=== PATIENT | male | born 1940 | race Caucasian/White ===

== ENCOUNTER 2018-11-15 14:06 | Emergency (ER) | payer MEDICARE ==
[~2018-11-15] VITALS: Ht 172.7 cm; Wt 108.9 kg
--- OUTSIDE RECORDS SUMMARY | ~2018-11-15 | XMS | Clinical Summary ---
Demographics + + + | Address | [address] [place] [address] St | | | [place] [address] | + + + | Home Phone | | + + + | Preferred Language | Unknown | + + + | Marital Status | | + + + | Shinto Affiliation | Unknown | + + + | Race | Unknown | + + + | Ethnic Group | Unknown | + + + Author + + + | Author | [facility] | | | and [place] | + + + | Organization | [facility] | | | and [place] | + + + | Address | Unknown | + + + | Phone | Unavailable | + + + Support + + +---------+ + | Name | Relationship | Address | Phone | + + +---------+ + | Yahir Jesus | ECON | Unknown | | + + +---------+ + Care Team Providers + +------+ + | Care Processing Supervisor Name | Role | Phone | + +------+ + | Rivas Sales MD | PCP | | + +------+ + Allergies No Known Allergies Medications + + + +---------+------+------+-------+ | Medication | Sig | Dispensed | Refills | Star | End | Statu | | | | | | t | Date | s | | | | | | Date | | | + + + +---------+------+------+-------+ | SEREVENT DISKUS 50 | Inhale one puff | | 0 | 05/0 | | Activ | | MCG/DOSE diskus | twice daily | | | 4/20 | | e | | inhaler | | | | 17 | | | + + + +---------+------+------+-------+ | fluticasone | instill 2 sprays | | 0 | 06/0 | | Activ | | (FLONASE) 50 | into each nostril | | | 1/20 | | e | | mcg/nasal spray | once daily | | | 17 | | | + + + +---------+------+------+-------+ | omeprazole | take 1 capsule by | | 0 | 06/0 | | Activ | | (PRILOSEC) 40 MG | mouth 3O MINUTES | | | 1/20 | | e | | capsule | BEFORE BREAKFAST | | | 17 | | | | | DAILY | | | | | | + + + +---------+------+------+-------+ Active Problems Not on file Immunizations + + + + | Name | Dates Previously Given | Next Due | + + + + | INFLUENZA 64 Y OR >, | 02/25/2016 | | | TRIVALENT HIGH-DOSE | | | + + + + | PNEUMOCOCCAL | 02/25/2016 | | | CONJUGATE 13-VALENT | | | | (PCV13) | | | + + + + Family History + + +------+ + | Medical History | Relation | Name | Comments | + + +------+ + | Diabetes | Father | | | + + +------+ + | Heart failure | Father | | | + + +------+ + + +------+ + + | Relation | Name | Status | Comments | + +------+ + + | Father | | | | + +------+ + + | Mother | | | | + +------+ + + Social History + + + +--------+ + | Tobacco Use | Types | Packs/Day | Years | Date | | | | | Used | | + + + +--------+ + | Former Smoker | Cigarettes | | | 05/19/1955 - | | | | | | 02/17/1975 | + + + +--------+ + + +---+---+---+ | Smokeless Tobacco: | | | | | Never Used | | | | + +---+---+---+ + + | Tobacco Cessation: Counseling Given: No | + + + + +---------+ + | Alcohol Use | Drinks/We | oz/Week | Comments | | | ek | | | + + +---------+ + | Yes | 0 | 0.0 | | | | Standard | | | | | drinks or | | | | | | | | | | equivalen | | | | | t | | | + + +---------+ + + + + | Sex Assigned at | Date Recorded | | | | + + + | Not on file | | + + + + + + + | Job Start Date | Occupation | Industry | + + + + | Not on file | Not on file | Not on file | + + + + + + + + | Travel History | Travel Start | Travel End | + + + + + + | No recent travel history available. | + + Last Filed Vital Signs + + + + | Vital Sign | Reading | Time Taken | + + + + | Blood Pressure | 120/84 | 07/18/20161452 PDT | + + + + | Pulse | 60 | 07/18/20161452 PDT | + + + + | Temperature | 36.9 C (98.4 F) | 07/18/20161452 PDT | + + + + | Respiratory Rate | - | - | + + + + | Oxygen Saturation | 94% | 07/18/20161452 PDT | + + + + | Inhaled Oxygen | - | - | | Concentration | | | + + + + | Weight | 111.6 kg (246 lb) | 07/18/20161452 PDT | + + + + | Height | 167.6 cm (5' 6") | 07/18/20161452 PDT | + + + + | Body Mass Index | 39.71 | 07/18/2016 1453 PDT | + + + + Plan of Treatment + + + + + | Health Maintenance | Due Date | Last Done | Comments | + + + + + | Vaccine: | | | | | Dtap/Tdap/Td (1 - | 9 | | | | Tdap) | | | | + + + + + | Vaccine: Zoster (1 | | | | | of 2) | 0 | | | + + + + + | Vaccine: | | 02/25/2016 | | | Pneumococcal 65+ | 8 | | | | Low/Medium Risk (2 | | | | | of 2 - PPSV23) | | | | + + + + + | Vaccine: Influenza | | 02/25/2016 | | | (#1) | 9 | | | + + + + + Results Not on filefrom Last 3 Months Insurance + +--------+ +--------+ +---------+--------+ | Payer | Benefi | Subscriber | Effect | Phone | Address | Type | | | t Plan | ID | indra | | | | | | / | | Dates | | | | | | Group | | | | | | + +--------+ +--------+ +---------+--------+ | MEDICARE | MEDICA | [id number] | 04/11/19 | [phone] | | Medica | | | RE | | 05-Pre | 5 | | re | | | PART A | | sent | | | | | | AND B | | | | | | + +--------+ +--------+ +---------+--------+ | AARP | AARP | [id number] | 02/10/19 | [phone] | | Indemn | | | MDCR | | 17-Pre | 0 | | ity | | | SUPPL | | sent | | | | + +--------+ +--------+ +---------+--------+ + +--------+ +--------+ + + | Guarantor Name | Accoun | Relation to | Date | Phone | Billing Address | | | t Type | Patient | of | | | | | | | | | | + +--------+ +--------+ + + | Nolberto Jesus | Person | Self [birth year] | | | al/Jitendra | | 1941 | [phone] | [place] [address] | | | [place]vin | | | 8 (Home) | | + +--------+ +--------+ + + Advance Directives Patient has advance care planning documents on file. For more information, please [facility] [place] [address]
--- OUTSIDE RECORDS SUMMARY | ~2018-11-15 | XMS | Clinical Summary ---
Demographics + + + | Address | [address] [place] [address] St | | | [place] [address] | + + + | Home Phone | | + + + | Preferred Language | Unknown | + + + | Marital Status | | + + + | Worship Affiliation | Unknown | + + + | Race | Unknown | + + + | Ethnic Group | Unknown | + + + Author + + + | Author | [facility] | | | and [place] | + + + | Organization | [facility] | | | and [place] | [...] Team Providers + +------+ + | Care Senior [employer]p Software Developer Name | Role | Phone | + [...] +--------+ +---------+--------+ | MEDICARE | MEDICA | [id number] | 04/11/19 | [phone] | | Medica | | | RE | | 05-Pre | 5 | | re | | | PART A | | sent | | | | | | AND B | | | | | | + +--------+ +--------+ +---------+--------+ | AARP | AARP | [id number] | 02/10/19 | [phone] | | Indemn [...] | | al/Jitendra | | 1941 | [phone] | [place] [address] | | | [place]vin | | | 8 (Home) | | + +--------+ +--------+ + + Advance Directives Patient has advance care planning documents on file. For more information, please [facility] [place] [address]
--- NOTE | 2018-11-16 16:46 | EKG ---
[facility] [address] [facility] [place] [address] Signed Sinus bradycardia with fusion complexes Left axis deviation Nonspecific T wave abnormality Abnormal ECG No previous ECGs available Confirmed by JOSEE MACIEL DO ([id number]) on 11/16/2018 4:46:42 PM Electronically Signed By: JOSEE MACIEL DO 11/16/18 1646 PATIENT NAME: SINA BARNHART [place] Electrocardiogram DATE OF : 38 PHYSICIAN: JOSEE MACIEL DO REPORT #: [id number] REPORT IS CONFIDENTIAL AND NOT TO BE RELEASED WITHOUT AUTHORIZATION
== END 2018-11-15 17:54 | disposition short-term general hospital (02) ==
LOC: ED 14:06
DX: R00.1 Bradycardia, unspecified (principal); R07.9 Chest pain, unspecified
CPT/HCPCS: 71045; 80053; 83735; 84484; 85025; 93005; 93010; 96374; 99285-25

== ENCOUNTER 2023-06-30 07:47 | Day surgery (SDC) | payer MEDICARE ==
[2023-06-24 10:24] VITALS: BP 144/79
[2023-06-30] VITALS (9 sets, daily range): BP systolic 141–191; BP diastolic 69–85
[~2023-06-30] VITALS: Ht 172.7 cm; Wt 108.2 kg
[~2023-06-30 07:47] MED LIST: CEFAZOLIN SODIUM 2 GM/20 ML SYR IV SCH; IBLOOD GLUCOSE TEST STRIP 1 EA TEST VI PRN; LACTATED RINGER'S 1,000 ML IV SCH; LIDOCAINE HCL 1% 5 ML SDV INJ ONE; TAMSULOSIN HCL0.4 MG PO
[2023-06-30] MEDS ORDERED: diphenhydrAMINE HCL 25 MG CAP PO PRN (08:15)
[2023-06-30] MEDS ORDERED: MORPHINE SULFATE 4 MG/ML VIAL IV PRN (08:15)
[2023-06-30] MEDS ORDERED: LACTATED RINGER'S 1,000 ML IV SCH (08:15)
[2023-06-30] MEDS ORDERED: OXYCODONE/APAP 5/325 TAB PO PRN (08:15)
[2023-06-30] MEDS ORDERED: ondansetron HCL 4 MG/2 ML VIAL IV PRN ×2 (08:15→10:30)
[2023-06-30] MEDS ORDERED: ROCURONIUM BROMIDE 50 MG/5 ML SYR ONE ×2 (08:52→09:55)
[2023-06-30] MEDS ORDERED: DEXAMETHASONE SOD PHOS 4 MG/ML VIAL ONE ×2 (08:52→09:18)
[2023-06-30] MEDS ORDERED: ePHEDrine sulfate 50 MG/ML AMP ONE (09:16)
[2023-06-30] MEDS ORDERED: fentaNYL citrate 100 MCG/2 ML VIAL ONE ×2 (09:17→09:25)
[2023-06-30] MEDS ORDERED: MIDAZOLAM HCL 2 MG/2 ML VIAL ONE (09:17)
[2023-06-30] MEDS ORDERED: propofoL 200 MG/20 ML VIAL ONE (09:18)
[2023-06-30] MEDS ORDERED: BUPIVACAINE 0.75% IN DEXTROSE 2 ML AMP ONE (09:18)
[2023-06-30] MEDS ORDERED: LIDOCAINE HCL 2% 5 ML SDV ONE (09:18)
[2023-06-30] MEDS ORDERED: ondansetron HCL 4 MG/2 ML VIAL ONE (10:15)
[2023-06-30] MEDS ORDERED: SUGAMMADEX SODIUM 200 MG/2 ML ML ONE (10:17)
[2023-06-30] MEDS ORDERED: HYDROmorphone HCL 1 MG/ML SYR IV PRN (10:30)
[2023-06-30] MEDS ORDERED: fentaNYL citrate 50 MCG/ML SDV IV PRN (10:30)
[2023-06-30] MEDS ORDERED: NALOXONE HCL 0.4 MG SYR IV PRN (10:30)
[2023-06-30] MEDS ORDERED: IBLOOD GLUCOSE TEST STRIP 1 EA TEST VI PRN (10:30)
--- NOTE | 2023-06-30 11:06 | NUR ---
1100 PATIENT TO MED SURG, VIA GURNEY, PATIENT MOVED OVER TO BED BY TAMMY RN, PACU AND FAMILY. 1100 VITALS DONE. PATIENT DENIES PAIN, ENDORSES IRRITATION BY FRAUSTO CATHETER. SLOW DRIP ON CBI, URINE IS VERY PALE PINK. FAMILY IN ROOM WITH PATIENT. PATIENT IS SALINE LOCKED, ICE WATER PROVIDED.
--- NOTE | 2023-06-30 11:53 | NUR ---
SECOND SET OF VITALS COMPLETE. URINE IS SLIGHTLY PINKER, CBI IS SLOWEST DRIP POSSIBLE. PATIENT CONTINUES TO DENY PAIN.
--- NOTE | 2023-06-30 11:55 | NUR ---
06/30/23 1155 Juliane Elias 1029- PT ARRIVES TO PACU, SEMI THOMASON POSITION, REACTIVE TO STIMULUS. O2 AT 6L PER MASK, BREATHING EVEN AND NON LABORED. LR INFUSING TO RH IV. PT DENIES PAIN AND NAUSEA. CBI RUNNING TO FRAUSTO CATHETER WITH CLEAR FLUID COMING OUT, CBI BAGS MARKED TO MONITOR INFUSION, AND FRAUSTO CATHETER EMPTIED ON ARRIVAL. PT HAS VERY LIGHT TINGE OF PINK IN BAG. ABD ROUND AND FIRM, NON TENDER ON PALPATION. NO DRAINAGE COMING FROM PENIS. ALL MONITORS IN PLACE. 1039- PT AWAKE BUT DROWSY LOOKING AROUND. REORIENTED TO TIME AND PLACE AND PLAN OF CARE. CBI SLOWED, CONTINUE TO DRAIN CLEAR FLUID INTO FRAUSTO BAG. PT DENIES PAIN AND NAUSEA, REPORTS SOME URGENCY TO URINATE. EDUCATED PT ON CBI. 1045- LR COMPLETE, IV SALINE LOCKED TO RH. FRAUSTO CATHETER EMPTIED, 650 ML OUT, 750 ML OF NS INFUSED INTO BLADDER. NO SIGNS OF DISTRESS. DENIES PAIN AND NAUSEA. 1100- PT TAKEN TO MED/SURG, DROWSY BUT ANSWERING QUESTIONS APPROPRIATELY. PLAN OF CARE EXPLAINED TO PT. SALINE LOCK REMAINS IN RH. CBI INFUSING TO FRAUSTO CATHETER. PT IS ABLE TO MOVE SELF FROM GURNEY ACROSS TO BED. SMALL AMOUNT OF BLOOD NOTED IN CATHETER. FAMILY IN ROOM, REPORT AT BEDSIDE TO RETA BLANTON, CARE OF PT TURNED OVER AT THIS TIME.
--- NOTE | 2023-06-30 12:39 | NUR ---
PATIENT CHECKED INTO THE MEDICAL SURGICAL FLOOR BY HARVINDER MCDUFFIE. FULL ASSESSMENT COMPLETE AND DOCUMENTED IN THE CHART. PATIENT IS LYING IN BED WITH HOB ELEVATED. PATIENT WITH TWO FAMILY MEMBERS SITTING AT THE BEDSIDE. CARDIAC WITH NORMAL S1 AND S2 ON AUSCULTATION. PATIENT IS ALERT AND ORIENTED TIMES FOUR. LUNG SOUNDS ARE CLEAR IN ALL LUNG WYNN AND THE PATIENT IS ON ROOM AIR. BOWEL TONES ARE ACTIVE IN ALL FOUR QUADRANTS. IV SITE IN THE RIGHT HAND FLUSHED WITH 10 ML NORMAL SALINE. IV DRESSING IS CLEAN DRY AND INTACT. CATHETER INTACT. URINE WATERMELON COLORED AT THIS TIME. PATIENT WITH NO COMPLAINTS OF PAIN OR NUMBNESS AND TINGLING AT THIS TIME. SENSATION INTACT. PATIENT SCDS ARE ON AND IN PLACE. PATIENT STATED NO FURTHER NEEDS AT THIS TIME. CALL LIGHT AND PERSONAL BELONGINGS ARE WITHIN REACH.
[2023-06-30] MEDS ORDERED: LEVOFLOXACIN500 MG PO (12:51)
[2023-06-30] MEDS ORDERED: TRAMADOL HCL50 MG PO (12:52)
--- NOTE | 2023-06-30 15:39 | NUR ---
MED REC COMPLETE
--- NOTE | 2023-06-30 17:23 | NUR ---
PATIENT IS SITTING UPRIGHT IN BED AND EATING DINNER. PATIENT WITH NO COMPLAINTS OF PAIN WHEN ASKED BY RN. URINE IS WATERMELON COLORED. PATIENT WITH DAUGHTER AND AT THE BEDSIDE. PATIENT STATED NO FURTHER NEEDS AT THIS TIME. CALL LIGHT AND PERSONAL BELONGINGS ARE WITHIN REACH.
[2023-06-30] MEDS ORDERED: DOCUSATE SODIUM 100 MG CAP PO ONE (18:15)
[2023-06-30] MEDS ORDERED: CEFTRIAXONE/SODIUM CHLORIDE 1 GM/100 ML PIGGYBACK IV SCH (18:30)
[2023-07-01] MEDS ORDERED: CEFTRIAXONE/SODIUM CHLORIDE 1 GM/100 ML PIGGYBACK IV SCH (09:00)
--- NOTE | 2023-07-04 11:36 | PATH ---
[facility] [address] [place], [place] [address] Signed SPECIMEN(S): A PROSTATE CHIPS SPECIMEN SOURCE: A. PROSTATE CHIPS CLINICAL HISTORY: BPH with LUTS FINAL PATHOLOGIC DIAGNOSIS: Prostate chips: - Benign prostatic glandular tissue. - Urothelium with focal mild atypia, favor reactive. JVR:clv MICROSCOPIC EXAMINATION: Histologic sections of all submitted blocks are examined by light microscopy. These findings, together with the gross examination, support the pathologic diagnosis. Immunostains were performed with appropriate controls on block A1 and show the following: - CK5: Focal basal expression in the urothelium of concern. - CK20: Negative for full-thickness epithelial staining in area of concern. JVR:clv GROSS DESCRIPTION: The specimen, labeled and designated "Montee, " and designated on the requisition "prostate chips," is received in formalin and consists of multiple fragments of maki-pink soft rubbery tissue (1 g, 2.0 x 1.7 x 0.8 cm in aggregate). The specimen is submitted entirely in cassette A1. AC (under the direct supervision of a pathologist) The Gross Description was prepared using a voice recognition system. The report was reviewed for accuracy; however, sound-alike word errors, addition and/or deletions may occur. If there is any question about this report, please contact Client Services. ADDITIONAL NOTES: Immunohistochemical and/or in situ hybridization studies if performed in this case included appropriate positive controls that reacted as expected. This test was developed and its performance characteristics determined by [facility]. It has not been cleared or PATIENT NAME: SINA BARNHART PATHOLOGY DATE OF : 38 REPORT #: [id number] PHYSICIAN: [facility] PCP: SARAH BAKER MD REPORT IS CONFIDENTIAL AND NOT TO BE RELEASED WITHOUT AUTHORIZATION [address] [place], [place] [address] Signed approved by the U.S. Food and Drug Administration. The FDA has determined that such clearance or approval is not necessary. This test is used for clinical purposes. It should not be regarded as investigational or for research. [facility] is certified under the Clinical Laboratory Improvement Amendments of 1988 (CLIA) as qualified to perform high complexity clinical laboratory testing. PERFORMING LABORATORY: Technical component was performed by [facility], [address] [place] [address] (CLIA# [id number]). Professional interpretation was performed by [facility] - [facility], [address] [place] [id number] (CLIA#: [id number]). Diagnostician: Wilfredo Daily MD Pathologist Electronically Signed 07/04/2023 Copies: ~ PATIENT NAME: SINA BARNHART PATHOLOGY DATE OF : 38 REPORT #: [id number] PHYSICIAN: [facility] PCP: SARAH BAKER MD REPORT IS CONFIDENTIAL AND NOT TO BE RELEASED WITHOUT AUTHORIZATION
== END 2023-06-30 19:12 | disposition home or self-care (01) ==
LOC: DS 07:47 → MS 11:17 → DS 19:12
PROVIDERS: ATTEND Urology
PROC: 0T7D4ZZ Dilation of Urethra, Percutaneous Endoscopic Approach (ICD-10-PCS; 2023-06-30)
PROC: 0VB07ZZ Excision of Prostate, Via Natural or Artificial Opening (ICD-10-PCS; principal; 2023-06-30 09:30)
DX: N40.1 Benign prostatic hyperplasia with lower urinary tract symptoms (principal); Q54.1 Hypospadias, penile; N35.911 Unspecified urethral stricture, male, meatal; G47.33 Obstructive sleep apnea (adult) (pediatric); K21.9 Gastro-esophageal reflux disease without esophagitis
CPT/HCPCS: 00914; 88305; 88341; 88342; C1769; J0690; J0696; J1100; J2001; J2250; J2405; J2704; J3010; J3490; J7121

== ENCOUNTER 2024-05-23 20:29 | Emergency (ER) | payer MEDICARE ==
[~2024-05-23] VITALS: Ht 172.7 cm; Wt 107.0 kg
[~2024-05-23 20:29] MED LIST changes: -CEFAZOLIN SODIUM 2 GM/20 ML SYR IV SCH; -IBLOOD GLUCOSE TEST STRIP 1 EA TEST VI PRN; -LACTATED RINGER'S 1,000 ML IV SCH; +LEVOFLOXACIN500 MG PO; -LIDOCAINE HCL 1% 5 ML SDV INJ ONE; +TRAMADOL HCL50 MG PO
[2024-05-23] MEDS ORDERED: LIDOCAINE 2% VISCOUS 6 ML SYR TOP ONE (22:30)
[2024-05-23] MEDS ORDERED: GLYCERIN 2 GM SUPP PR ONE (22:30)
[2024-05-24 01:33] LABS: BILIRUBIN, URINE NEGATIVE (negative); BLOOD/HGB, URINE LARGE (Negative); KETONE, URINE TRACE (Negative); LEUK ESTERASE, URINE NEGATIVE (negative); NITRITE, URINE NEGATIVE (negative)
[2024-05-24 01:39] LABS: RED BLOOD CELLS, URINE 41-50 /hpf (0-5)
[2024-05-24] MEDS ORDERED: ANUSOL-HC25 MG PR (01:39)
[2024-05-24] MEDS ORDERED: MIRALAX119 GM PO (01:39)
[2024-05-24 01:40] LABS: BACTERIA, URINE 1+ /hpf (negative); CASTS, URINE NONE SEEN \\lpf; COLLECTION TYPE, URINE CLEAN CATCH; CRYSTALS, URINE NONE SEEN (0-1+); EPITHELIAL CELLS, URINE SQUAMOUS 1+ /lpf (0-1+); REFLEX CULTURE, URINE No (No)
[2024-05-24] MEDS ORDERED: HYDROCORTISONE ACETATE 25 MG SUPP PR ONE (01:45)
[2024-05-24 02:11] VITALS: BP 114/97
== END 2024-05-24 01:50 | disposition home or self-care (01) ==
LOC: ED 20:29
PROVIDERS: Internal Medicine
DX: K64.4 Residual hemorrhoidal skin tags (principal); K59.00 Constipation, unspecified; Z87.891 Personal history of nicotine dependence; Z90.79 Acquired absence of other genital organ(s)
CPT/HCPCS: 51701; 51798; 74018; 81001; 99284